=== PATIENT | female | born 1965 | race Two or more races ===

== ENCOUNTER 2016-09-25 10:10 | Day surgery (SDC) | payer OTHER ==
[2016-09-22 11:50] VITALS: BMI 26.5
[2016-09-25] MEDS ORDERED: MIDAZOLAM HCL 2 MG/2 ML SINGLE DOSE VIAL ONE (11:27)
[2016-09-25] MEDS ORDERED: LEVOFLOXACIN 500 MG PREMIX BAG IVPB ONE (11:36)
[2016-09-25] MEDS ORDERED: oxyCODONE HCL 5 MG TABLET PO PRN (11:39)
[2016-09-25] MEDS ORDERED: ONDANSETRON 4 MG/2 ML VIAL IVPUSH PRN (11:39)
[2016-09-25] MEDS ORDERED: LACTATED RINGERS SOLUTION 1,000 ML IV SCH (11:45)
--- NOTE | 2016-09-25 12:40 | OP ---
Operative Note - Note: Operative Date: 09/25/16 Pre-Operative Diagnosis: right renal stone Operation: right eswl Findings: 5 mm right renal stone Post-Operative Diagnosis: Same as Pre-op Surgeon: Yuan Shaw Anesthesia: General Operative Report Dictated: Yes
[2016-09-25 13:03] VITALS: TEMP 98
[2016-09-25 14:49] VITALS: BP 144/85; PULSE 69
--- NOTE | 2016-09-26 14:03 | OP ---
DATE OF OPERATION: 09/25/2016 PREOPERATIVE DIAGNOSIS: A 5-mm right mid pole renal stone. POSTOPERATIVE DIAGNOSIS: A 5-mm right mid pole renal stone. PROCEDURE: Right extracorporeal shock-wave lithotripsy. ATTENDING: Dieudonne Lundy MD ANESTHESIA: General. DESCRIPTION OF PROCEDURE: The patient was brought in the operating room and placed in supine position on the operating room table. Fluoroscopy and ultrasonography were performed. A 5-cm right mid pole stone was identified. At this point, general anesthesia and preoperative antibiotics were administered. Extracorporeal shock-wave lithotripsy was performed. Then 2500 impulses at 20 J of power were administered to the stone under real time ultrasonography and fluoroscopy. Excellent fragmentation of the stone was noted. No complications were noted. The patient tolerated the procedure very well. DIEUDONNE LUNDY M.D. /[id number]
== END 2016-09-25 14:49 | disposition home or self-care (01) ==
LOC: JASU-SURG 10:10
PROVIDERS: ATTEND Urology
PROC: 0TF3XZZ Fragmentation in Right Kidney Pelvis, External Approach (ICD-10-PCS; principal; 2016-09-25 11:45)
DX: N20.0 Calculus of kidney (principal)
CPT/HCPCS: 94760

== ENCOUNTER 2017-04-24 23:32 | Emergency (ER) | payer OTHER ==
[2017-04-24 23:51] VITALS: BMI 24.7
--- NOTE | 2017-04-24 23:56 | PDOC ---
History of Present Illness - General History Source: Patient, Old Records Exam Limitations: No Limitations - History of Present Illness Initial Comments: 04/24/17 23:58 The patient is a 52 year old female with history of NIDDM brought in by EMS for an episode of lightheadedness and near-syncope tonight. The patient reports she has been sick with subjective fever, chills, diffuse myalgias, cough, and nasal congestion for the past 2 days. Today she was feeling lightheaded when she called her soon into her room. Per the patient's son, the patient had a questionable loss of consciousness for 2-3 minutes with one associated episode of NBNB vomiting. Son activated EMS. On ED evaluation, patient complains of feeling generally weak. The patient denies any chest pain, shortness of breath, or palpitations. She denies nausea, recurrent vomiting, or diarrhea. She denies headache, blurred vision, focal weakness, or paresthesias. <Ayana Gaming - Last Filed: 04/25/17 00:47> <Brigida Myers - Last Filed: 04/25/17 02:27> - General Chief Complaint: Nausea/Vomiting Stated Complaint: FLU LIKE SYMPTOMS Time Seen by Provider: 04/24/17 23:55 Past History <Ayana Gaming - Last Filed: 04/25/17 00:47> - Past Medical History Anemia: No Asthma: No Cancer: No Cardiac Disorders: No CVA: No COPD: No CHF: No Dementia: No Diabetes: Yes GI Disorders: No Disorders: No HTN: No Hypercholesterolemia: No Liver Disease: No Seizures: No Thyroid Disease: No - Surgical History Abdominal Surgery: Yes (COLONOSCOPY) - Suicide/Smoking/Psychosocial Hx Smoking Status: No Smoking History: Never smoked Have you smoked in the past 12 months: No Number of Cigarettes Smoked Daily: 0 Hx Alcohol Use: No Drug/Substance Use Hx: No Substance Use Type: None <Brigida Myers - Last Filed: 04/25/17 02:27> - Past Medical History Allergies/Adverse Reactions: Allergies Allergy/AdvReac Type Severity Reaction Status Date / Time No Known Allergies Allergy Verified 09/25/16 11:01 Home Medications: Ambulatory Orders Metformin HCl [Glucophage -] 1,000 mg PO DAILY 04/24/17 Review of Systems - Review of Systems Able to Perform ROS?: Yes Comments:: 04/25/17 00:08 CONSTITUTIONAL: Present: subjective fever, chills, generalized weakness, diffuse myalgias Absent: diaphoresis, loss of appetite HEENT: Present: rhinorrhea, nasal congestion Absent: throat pain, throat swelling, difficulty swallowing, mouth swelling, ear pain, eye pain, visual Changes CARDIOVASCULAR: Absent: chest pain, syncope, palpitations, irregular heart rate, lightheadedness , peripheral edema RESPIRATORY: Present: cough Absent: shortness of breath, dyspnea with exertion, orthopnea, wheezing, stridor , hemoptysis GASTROINTESTINAL: Present: NBNB vomiting x 1 Absent: abdominal pain, abdominal distension, nausea, diarrhea, constipation, melena, hematochezia GENITOURINARY: Absent: dysuria, frequency, urgency, hesitancy, hematuria, flank pain, genital pain MUSCULOSKELETAL: Absent: arthralgia, joint swelling SKIN: Absent: rash, itching, pallor HEMATOLOGIC/IMMUNOLOGIC: Absent: easy bleeding, easy bruising, lymphadenopathy, frequent infections ENDOCRINE: Absent: unexplained weight gain, unexplained weight loss, heat intolerance, cold intolerance NEUROLOGIC: Absent: headache, focal weakness or paresthesias, dizziness, unsteady gait, seizure, mental status changes, bladder or bowel incontinence PSYCHIATRIC: Absent: anxiety, depression, suicidal or homicidal ideation, hallucinations. <Aynaa Gaming - Last Filed: 04/25/17 00:47> *Physical Exam - Vital Signs Last Vital Signs Temp Pulse Resp BP Pulse Ox 98.4 F 80 18 115/68 98 04/24/17 23:44 04/24/17 23:44 04/24/17 23:44 04/24/17 23:44 04/24/17 23:44 - Physical Exam Comments: 04/25/17 00:11 GENERAL: Well developed, well nourished. Awake and alert. Weak appearing. HEENT: Normocephalic, atraumatic. PERRLA, EOMI. No conjunctival pallor. Sclera are non- icteric. Moist mucous membranes. Oropharynx is clear. NECK: Supple. Full ROM. No JVD. Carotid pulses 2+ and symmetric, without bruits. No thyromegaly. No lymphadenopathy. CARDIOVASCULAR: Regular rate and rhythm. No murmurs, rubs, or gallops. Distal pulses are 2+ and symmetric. PULMONARY: No evidence of respiratory distress. Lungs clear to auscultation bilaterally. No wheezing, rales or rhonchi. ABDOMINAL: Soft. Non-tender. Non-distended. No rebound or guarding. No organomegaly. Normoactive bowel sounds. MUSCULOSKELETAL Normal range of motion at all joints. No bony deformities or tenderness. No CVA tenderness. EXTREMITIES: No cyanosis. No clubbing. No edema. No calf tenderness. SKIN: Warm and dry. Normal capillary refill. No rashes. No jaundice. NEUROLOGICAL: Alert, awake, appropriate. Cranial nerves 2-12 intact. No deficits to light touch and temperature in face, upper extremities and lower extremities. No motor deficits in the in face, upper extremities and lower extremities. Normoreflexic in the upper and lower extremities. Normal speech. Gait is normal without ataxia. No pronator drift. Normal heel lew. Normal rapid alternations. PSYCHIATRIC: Cooperative. Good eye contact. Appropriate mood and affect. <Ayana Gaming - Last Filed: 04/25/17 00:47> - Vital Signs Last Vital Signs Temp Pulse Resp BP Pulse Ox 98.4 F 80 18 115/68 98 04/24/17 23:44 04/24/17 23:44 04/24/17 23:44 04/24/17 23:44 04/24/17 23:44 <Brigida Myers - Last Filed: 04/25/17 02:27> Heart Score/ECG Review #1 ECG reviewed & interpreted by me at: 00:40 04/25/17 00:48 Normal sinus rhythm at 67 bpm. Normal EKG. <Ayana Gaming - Last Filed: 04/25/17 00:47> ED Treatment Course - LABORATORY CBC & Chemistry Diagram: 04/25/17 00:23 04/25/17 00:23 <Ayana Gaming - Last Filed: 04/25/17 00:47> - LABORATORY CBC & Chemistry Diagram: 04/25/17 00:23 04/25/17 00:23 <Brigida Myers - Last Filed: 04/25/17 02:27> Medical Decision Making - Medical Decision Making 04/25/17 02:26 CAT scan of the head showed no acute pathology. There was no bleed, no mass, no fluid collections or mass effect. There is no skull fracture 3. She has a glucose of 170. She is diabetic. CBC is within normal limits. Impression gastritis, diabetes <Brigida Myers - Last Filed: 04/25/17 02:27> *DC/Admit/Observation/Transfer - Attestations Scribe Attestion: 04/25/17 00:12 Documentation prepared by Ayana Gaming, acting as medical van driver for Brigida Myers MD. <Ayana Gaming - Last Filed: 04/25/17 00:47> <Brigida Myers - Last Filed: 04/25/17 02:27> - Referrals Referrals: Amalia De La Rosa NP [Primary Care Provider] -
[2017-04-24] MEDS ORDERED: ONDANSETRON 4 MG/2 ML VIAL IVPUSH STA (23:58)
[2017-04-24] MEDS ORDERED: SODIUM CHLORIDE 1,000 ML IV STA (23:58)
[2017-04-25] MEDS ORDERED: ONDANSETRON 4 MG/2 ML VIAL ONE (00:30)
[2017-04-25 00:39] LABS: BASO % 0.3 % (0-2.0); EOS % 0.3 % (0-4.5); HEMATOCRIT 36.8 % (32.4-45.2); HEMOGLOBIN 12.5 GM/dL (10.7-15.3); LYMPH % 23.1 % (8-40); MCH 32.3 pg (25.7-33.7); MCHC 33.9 g/dl (32.0-36.0); MEAN CELL VOLUME 95.5 fl (80-96); MEAN PLT VOLUME 8.6 fl (7.5-11.1); MONO % 10.4 % (3.8-10.2); NEUT % 65.9 % (42.8-82.8); PLATELET COUNT 212 K/MM3 (134-434); RBC 3.86 M/mm3 (3.60-5.2); RDW 12.9 % (11.6-15.6); WHITE BLOOD COUNT 5.4 K/mm3 (4.0-10.0)
[2017-04-25 01:18] LABS: ALBUMIN 3.9 g/dl (3.4-5.0); ANION GAP 11 (8-16); BILIRUBIN,TOTAL 0.4 mg/dL (0.2-1.0); BLOOD UREA NITROGEN 9 mg/dL (7-18); CHLORIDE 98 mmol/L (98-107); CO2 27 mmol/L (21-32); CREATININE 0.8 mg/dL (0.55-1.02); GLUCOSE,RANDOM 170 mg/dL (74-106); LIPASE 158 U/L (73-393); POTASSIUM 4.2 mmol/L (3.5-5.1); SGOT/AST 48 U/L (15-37); SGPT/ALT 66 U/L (12-78); SODIUM 136 mmol/L (136-145); TOT PROT 7.5 g/dl (6.4-8.2)
[2017-04-25 01:19] LABS: ALK PHOS 95 U/L (45-117)
[2017-04-25] MEDS ORDERED: ACETAMINOPHEN 1000 MG/100 ML VIAL (NON FORMULARY) IVPB ONE (01:39)
[2017-04-25] MEDS ORDERED: METOCLOPRAMIDE HCL INJECTION 10 MG/2 ML VIAL IVPB STA (01:39)
[2017-04-25] MEDS ORDERED: METOCLOPRAMIDE HCL INJECTION 10 MG/2 ML VIAL ONE (02:04)
[2017-04-25] MEDS ORDERED: ACETAMINOPHEN INJECTION 100 ML IVPB ONE (02:05)
[2017-04-25 05:30] LABS: URINE APPEARANCE SLCLOUDY; URINE BILIRUBIN NEGATIVE (NEGATIVE); URINE BLOOD NEGATIVE (NEGATIVE); URINE COLOR LTYELLOW; URINE GLUCOSE (UA) NEGATIVE (NEGATIVE); URINE KETONE NEGATIVE (NEGATIVE); URINE NITRITE POSITIVE (NEGATIVE); URINE PROTEIN NEGATIVE (NEGATIVE); URINE UROBILINOGEN NEGATIVE mg/dL (0.2-1.0)
[2017-04-25 05:31] LABS: URINE LEUK ESTERASE 3+ (NEGATIVE)
[2017-04-25 05:33] LABS: EPI CELLS RARE /HPF (FEW); URINE BACTERIA FEW /hpf (NONE SEEN); URINE MUCUS RARE
[2017-04-25] MEDS ORDERED: LEVOFLOXACIN 500 MG TABLET (FP) PO ONE (05:54)
--- NOTE | 2017-04-25 05:56 | PDOC ---
*Physical Exam - Vital Signs Last Vital Signs Temp Pulse Resp BP Pulse Ox 98.4 F 80 18 115/68 98 04/24/17 23:44 04/24/17 23:44 04/24/17 23:44 04/24/17 23:44 04/24/17 23:44 ED Treatment Course - LABORATORY CBC & Chemistry Diagram: 04/25/17 00:23 04/25/17 00:23 - ADDITIONAL ORDERS Additional order review: Laboratory Results 04/25/17 04/25/17 05:00 00:23 Sodium 136 Potassium 4.2 Chloride 98 Carbon Dioxide 27 Anion Gap 11 BUN 9 Creatinine 0.8 Creat Clearance w eGFR > 60 Random Glucose 170 H Calcium 9.0 Total Bilirubin 0.4 D AST 48 H D ALT 66 D Alkaline Phosphatase 95 Creatine Kinase 151 Creatine Kinase Index 0.6 CK-MB (CK-2) < 1.000 Troponin I < 0.02 Total Protein 7.5 Albumin 3.9 Lipase 158 Urine Color Ltyellow Urine Appearance Slcloudy Urine pH 6.0 Ur Specific [place] 1.006 Urine Protein Negative Urine Glucose (UA) Negative Urine Ketones Negative Urine Blood Negative Urine Nitrite Positive Urine Bilirubin Negative Urine Urobilinogen Negative Ur Leukocyte Esterase 3+ H Urine WBC (Auto) 137 Urine RBC (Auto) 1 Ur Epithelial Cells Rare Urine Bacteria Few Urine Mucus Rare 04/24/17 23:50 Influenza Types A,B Antigen (PIPPA) - Final Nasopharyngeal Swab - Final 04/25/17 00:23 RBC 3.86 MCV 95.5 MCHC 33.9 RDW 12.9 MPV 8.6 Neutrophils % 65.9 D Lymphocytes % 23.1 D Monocytes % 10.4 H Eosinophils % 0.3 D Basophils % 0.3 - Medications Given in the ED: ED Medications Discontinued Medications Generic Name Dose Route Start Last Admin Trade Name Freq PRN Reason Stop Dose Admin Acetaminophen 1,000 mg 04/25/17 01:39 04/25/17 02:47 Ofirmev Injection - IVPB 04/25/17 01:40 1,000 mg ONCE ONE Administration Diphenhydramine HCl 25 mg 04/25/17 01:40 04/25/17 02:08 Benadryl Injection - IVPUSH 04/25/17 01:41 25 mg ONCE ONE Administration Sodium Chloride 1,000 mls @ 1,000 mls/hr 04/24/17 23:58 04/25/17 00:27 Normal Saline - IV 04/25/17 00:57 1,000 mls/hr ASDIR STA Administration Metoclopramide HCl 10 mg 04/25/17 01:39 04/25/17 02:08 Reglan Injection - IVPB 04/25/17 01:40 10 mg ONCE STA Administration Ondansetron HCl 4 mg 04/24/17 23:58 04/25/17 00:31 Zofran Injection IVPUSH 04/24/17 23:59 4 mg ONCE STA Administration *DC/Admit/Observation/Transfer Diagnosis at time of Disposition: UTI (urinary tract infection) Qualifiers: Hematuria presence: without hematuria - Discharge Dispostion Disposition: HOME Condition at time of disposition: Stable Admit: No - Prescriptions Prescriptions: Levofloxacin [Levaquin -] 500 mg PO DAILY #7 tablet - Referrals Referrals: Amalia De La Rosa NP [Primary Care Provider] - - Patient Instructions Printed Discharge Instructions: DI for Urinary Tract Infection (UTI) Additional Instructions: Take medication as directed. Drink plenty of fluids. follow up with your primary care doctor. Print Language: [place] - Post Discharge Activity
[2017-04-25] MEDS ORDERED: LEVOFLOXACIN 500 MG TABLET (FP) ONE (05:58)
[2017-04-25 06:03] VITALS: BP 105/64; PULSE 66; TEMP 98.1
--- NOTE | 2017-04-25 10:56 | EKG ---
Test Reason : Blood Pressure : / mmHG Vent. Rate : 067 BPM Atrial Rate : 067 BPM P-R Int : 142 ms QRS Dur : 088 ms QT Int : 418 ms P-R-T Axes : 059 059 056 degrees QTc Int : 441 ms NORMAL SINUS RHYTHM NORMAL ECG WHEN COMPARED WITH ECG OF 04-MAY-2015 14:51, NO SIGNIFICANT CHANGE WAS FOUND Confirmed by ADALGISA GROVER MD ([id number]) on 04/25/2017 10:56:06 AM Referred By: Confirmed By:ADALGISA GROVER MD
== END 2017-04-25 06:13 | disposition home or self-care (01) ==
LOC: JER 23:32
PROC: 3E0337Z Introduction of Electrolytic and Water Balance Substance into Peripheral Vein, Percutaneous Approach (ICD-10-PCS; principal; 2017-04-24)
PROC: 3E033GC Introduction of Other Therapeutic Substance into Peripheral Vein, Percutaneous Approach (ICD-10-PCS; 2017-04-24)
PROC: 3E033GC Introduction of Other Therapeutic Substance into Peripheral Vein, Percutaneous Approach (ICD-10-PCS; 2017-04-24)
PROC: 3E033GC Introduction of Other Therapeutic Substance into Peripheral Vein, Percutaneous Approach (ICD-10-PCS; 2017-04-24)
PROC: 3E033GC Introduction of Other Therapeutic Substance into Peripheral Vein, Percutaneous Approach (ICD-10-PCS; 2017-04-24)
DX: N39.0 Urinary tract infection, site not specified (principal); E11.9 Type 2 diabetes mellitus without complications; Z79.84 Long term (current) use of oral hypoglycemic drugs
CPT/HCPCS: 36415; 70450-TC; 80053; 81003; 81015; 82550; 82553; 83690; 84484; 85025; 87804; 93005; 93010; 99283-25

== ENCOUNTER 2017-08-08 21:35 | Emergency (ER) | payer OTHER ==
[2017-08-08 21:48] VITALS: TEMP 97.9; BMI 26.5
--- NOTE | 2017-08-08 21:51 | PDOC ---
Rapid Medical Evaluation Chief Complaint: Lightheaded Time Seen by Provider: 08/08/17 21:46 Medical Evaluation: Allergies Allergy/AdvReac Type Severity Reaction Status Date / Time No Known Allergies Allergy Verified 09/25/16 11:01 08/08/17 21:46 c/o dizziness for the last 30 mins after taking bactrim. currently on bactrim for UTI. + nausea and headache. urinary symptoms not improving/ pmhx; NIDDM BGM 178 at home. O: patient alert ox 3. equal motor strength, A: dizziness P: ua, ucx Patient to the ER for further management of care.
[2017-08-08 22:18] LABS: URINE APPEARANCE CLEAR; URINE BILIRUBIN NEGATIVE (<2.0 mg/dL); URINE BLOOD NEGATIVE (NEGATIVE); URINE COLOR STRAW; URINE GLUCOSE (UA) NEGATIVE (NEGATIVE); URINE KETONE NEGATIVE (NEGATIVE); URINE LEUK ESTERASE NEGATIVE (NEGATIVE); URINE NITRITE NEGATIVE (NEGATIVE); URINE PROTEIN NEGATIVE (NEGATIVE); URINE UROBILINOGEN NEGATIVE mg/dL (0.2-1.0)
[2017-08-08] MEDS ORDERED: MECLIZINE HCL 25 MG TABLET (FP) PO ONE (23:45)
[2017-08-08] MEDS ORDERED: SODIUM CHLORIDE 0.9% 500 ML INFUS.BAG IV ONE (23:45)
[2017-08-08] MEDS ORDERED: ONDANSETRON 4 MG/2 ML VIAL IVPUSH ONE (23:45)
--- NOTE | 2017-08-08 23:52 | PDOC ---
History of Present Illness - General Chief Complaint: Lightheaded Stated Complaint: FATIGUE Time Seen by Provider: 08/08/17 21:46 History Source: Patient - History of Present Illness Initial Comments: 08/08/17 23:56 52 year old female c/o dizziness 30 mins after taking bactrim. patient currently on bactrim for UTI. patient reports mild nausea and diarrhea since taking antibiotics. denies vomiting, Past History - Past Medical History Allergies/Adverse Reactions: Allergies Allergy/AdvReac Type Severity Reaction Status Date / Time No Known Allergies Allergy Verified 09/25/16 11:01 Home Medications: Ambulatory Orders metFORMIN HCL [Glucophage -] 1,000 mg PO DAILY 04/24/17 Meclizine HCl [Antivert -] 25 mg PO TID PRN #10 tablet 08/09/17 Cephalexin [Keflex] 500 mg PO BID #14 capsule 08/13/17 Anemia: No Asthma: No Cancer: No Cardiac Disorders: No CVA: No COPD: No CHF: No Dementia: No Diabetes: Yes GI Disorders: No Disorders: No HTN: No Hypercholesterolemia: No Liver Disease: No Seizures: No Thyroid Disease: No - Surgical History Abdominal Surgery: Yes (COLONOSCOPY) - Suicide/Smoking/Psychosocial Hx Smoking Status: No Smoking History: Never smoked Have you smoked in the past 12 months: No Number of Cigarettes Smoked Daily: 0 Information on smoking cessation initiated: No Hx Alcohol Use: No Drug/Substance Use Hx: No Substance Use Type: None Review of Systems - Review of Systems Able to Perform ROS?: Yes Is the patient limited Latvian proficient: No Constitutional: No: Symptoms Reported, See HPI, Chills, Diaphoresis, Fever, Loss of Appetite, Malaise, Night Sweats, Weakness, Weight Stable, Unintentional Wgt. Loss, Unexplained wgt Loss, Other *Physical Exam - Vital Signs Last Vital Signs Temp Pulse Resp BP Pulse Ox 97.9 F 65 18 135/88 99 08/08/17 21:45 08/08/17 21:45 08/08/17 21:45 08/08/17 21:45 08/08/17 21:45 - Physical Exam General Appearance: Yes: Appropriately Dressed Respiratory/Chest: positive: Lungs Clear, Normal Breath Sounds Cardiovascular: positive: Regular Rhythm, Regular Rate Musculoskeletal: positive: Normal Inspection Extremity: positive: Normal Capillary Refill, Normal Inspection, Normal Range of Motion Integumentary: positive: Normal Color, Dry, Warm Neurologic: positive: Fully Oriented, Alert, Other (neg kala peterson pike) ED Treatment Course - LABORATORY CBC & Chemistry Diagram: 08/09/17 00:00 08/09/17 00:00 - ADDITIONAL ORDERS Additional order review: Laboratory Results 08/08/17 22:00 Urine Color Straw Urine Appearance Clear Urine pH 6.0 Ur Specific [place] 1.002 Urine Protein Negative Urine Glucose (UA) Negative Urine Ketones Negative Urine Blood Negative Urine Nitrite Negative Urine Bilirubin Negative Urine Urobilinogen Negative Ur Leukocyte Esterase Negative Medical Decision Making - Medical Decision Making A: vertigo P: cbc cmp UA UCX meclizine 08/09/17 01:52 patient reports improvement in dizziness,. *DC/Admit/Observation/Transfer Diagnosis at time of Disposition: Vertigo - Discharge Dispostion Disposition: HOME - Prescriptions Prescriptions: Cephalexin [Keflex] 500 mg PO BID #14 capsule Meclizine HCl [Antivert -] 25 mg PO TID PRN #10 tablet PRN Reason: Vertigo - Referrals Referrals: Amalia De La Rosa NP [Primary Care Provider] - - Patient Instructions Printed Discharge Instructions: Vertigo Additional Instructions: drink plenty of fluids. take meclizine as prescribed for dizziness. follow up with your doctor as soon as possible. - Post Discharge Activity Forms/Work/School Notes: Back to Work
[2017-08-09] MEDS ORDERED: ONDANSETRON 4 MG/2 ML VIAL ONE (00:15)
[2017-08-09] MEDS ORDERED: MECLIZINE HCL 25 MG TABLET (FP) ONE (00:15)
[2017-08-09 00:31] LABS: BASO % 0.6 % (0-2.0); EOS % 3.3 % (0-4.5); HEMATOCRIT 32.6 % (32.4-45.2); HEMOGLOBIN 11.4 GM/dL (10.7-15.3); LYMPH % 49.5 % (8-40); MCH 33.3 pg (25.7-33.7); MCHC 35.1 g/dl (32.0-36.0); MEAN CELL VOLUME 94.9 fl (80-96); MEAN PLT VOLUME 8.9 fl (7.5-11.1); MONO % 9.9 % (3.8-10.2); NEUT % 36.7 % (42.8-82.8); PLATELET COUNT 231 K/MM3 (134-434); RBC 3.43 M/mm3 (3.60-5.2); RDW 12.8 % (11.6-15.6); WHITE BLOOD COUNT 6.1 K/mm3 (4.0-10.0)
--- NOTE | 2017-08-09 00:32 | PDOC ---
*Physical Exam - Vital Signs Last Vital Signs Temp Pulse Resp BP Pulse Ox 97.9 F 65 18 135/88 99 08/08/17 21:45 08/08/17 21:45 08/08/17 21:45 08/08/17 21:45 08/08/17 21:45 - Physical Exam Comments: 08/09/17 00:32 The patient was examined by [QUINN Myers] under my direct supervision. I personally evaluated the patient. I concur with the above findings and the plan of care. ED Treatment Course - LABORATORY CBC & Chemistry Diagram: 08/09/17 00:00 08/09/17 00:00 - ADDITIONAL ORDERS Additional order review: Laboratory Results 08/08/17 22:00 Urine Color Straw Urine Appearance Clear Urine pH 6.0 Ur Specific [place] 1.002 Urine Protein Negative Urine Glucose (UA) Negative Urine Ketones Negative Urine Blood Negative Urine Nitrite Negative Urine Bilirubin Negative Urine Urobilinogen Negative Ur Leukocyte Esterase Negative - Medications Given in the ED: ED Medications Discontinued Medications Generic Name Dose Route Start Last Admin Trade Name Walkerq PRN Reason Stop Dose Admin Meclizine HCl 25 mg 08/08/17 23:45 08/09/17 00:26 Antivert - PO 08/08/17 23:46 25 mg ONCE ONE Administration Ondansetron HCl 4 mg 08/08/17 23:45 08/09/17 00:26 Zofran Injection IVPUSH 08/08/17 23:46 4 mg ONCE ONE Administration Sodium Chloride 1,000 ml 08/08/17 23:45 08/09/17 00:26 Normal Saline - IV 08/08/17 23:46 1,000 ml ONCE ONE Administration *DC/Admit/Observation/Transfer Diagnosis at time of Disposition: Vertigo - Discharge Dispostion Disposition: HOME - Prescriptions Prescriptions: Cephalexin [Keflex] 500 mg PO BID #14 capsule Meclizine HCl [Antivert -] 25 mg PO TID PRN #10 tablet PRN Reason: Vertigo - Referrals Referrals: Amalia De La Rosa NP [Primary Care Provider] - - Patient Instructions Printed Discharge Instructions: Vertigo Additional Instructions: drink plenty of fluids. take meclizine as prescribed for dizziness. follow up with your doctor as soon as possible. - Post Discharge Activity Forms/Work/School Notes: Back to Work
[2017-08-09 00:59] LABS: ALBUMIN 3.8 g/dl (3.4-5.0); ANION GAP 11 (8-16); BLOOD UREA NITROGEN 7 mg/dL (7-18); CHLORIDE 95 mmol/L (98-107); CO2 23 mmol/L (21-32); CREATININE 0.8 mg/dL (0.55-1.02); GLUCOSE,RANDOM 174 mg/dL (74-106); SGPT/ALT 94 U/L (12-78); SODIUM 129 mmol/L (136-145)
[2017-08-09 01:03] LABS: ALK PHOS 94 U/L (45-117); BILIRUBIN,TOTAL 0.4 mg/dL (0.2-1.0); TOT PROT 7.3 g/dl (6.4-8.2)
[2017-08-09 01:07] LABS: POTASSIUM 4.2 mmol/L (3.5-5.1); SGOT/AST 65 U/L (15-37)
[2017-08-09] MEDS ORDERED: METOCLOPRAMIDE HCL INJECTION 10 MG/2 ML VIAL IVPB ONE (01:51)
[2017-08-09] MEDS ORDERED: FAMOTIDINE IV 20 MG/12 ML VIAL IVPUSH ONE (02:03)
[2017-08-09] MEDS ORDERED: FAMOTIDINE 20 MG/50 ML IVPB 20 MG/50 ML MG IVPB ONE (02:11)
[2017-08-09] MEDS ORDERED: METOCLOPRAMIDE HCL INJECTION 10 MG/2 ML VIAL ONE (02:11)
[2017-08-09 03:43] VITALS: BP 130/74; PULSE 67
--- NOTE | 2017-08-09 11:26 | EKG ---
Test Reason : Blood Pressure : / mmHG Vent. Rate : 058 BPM Atrial Rate : 058 BPM P-R Int : 164 ms QRS Dur : 098 ms QT Int : 486 ms P-R-T Axes : 071 067 059 degrees QTc Int : 477 ms SINUS BRADYCARDIA OTHERWISE NORMAL ECG WHEN COMPARED WITH ECG OF 25-APR-2017 00:39, NO SIGNIFICANT CHANGE WAS FOUND Confirmed by JANAK NEWTON MD ([id number]) on 08/09/2017 11:26:21 AM Referred By: Confirmed By:JANAK NEWTON MD
--- NOTE | 2017-08-12 07:59 | PDOC ---
Patient Follow-up (Call Back) - Post ED Follow - Up Disposition at time of original discharge: HOME Reason for Call Back: Abnwl. Microbiology (Urine culture shows on preliminary lactose fermenting negative bacilli. Patient currently on Bactrim. Will await final report.)
--- NOTE | 2017-08-13 07:54 | PDOC ---
Patient Follow-up (Call Back) - Post ED Follow - Up Disposition at time of original discharge: HOME Reason for Call Back: Abnwl. Microbiology (Patient was prescribed Keflex. Patient was resistant to Bactrim. Final culture shows Escherichia coli.)
== END 2017-08-09 03:43 | disposition home or self-care (01) ==
LOC: JER 21:35
PROC: 3E033GC Introduction of Other Therapeutic Substance into Peripheral Vein, Percutaneous Approach (ICD-10-PCS; principal; 2017-08-08)
PROC: 3E0337Z Introduction of Electrolytic and Water Balance Substance into Peripheral Vein, Percutaneous Approach (ICD-10-PCS; 2017-08-08)
DX: R42 Dizziness and giddiness (principal)
CPT/HCPCS: 36415; 80053; 81003; 84484; 85025; 87086; 87186; 93005; 93010; 99283-25